=== PATIENT | male | born 1960 | race Caucasian/White ===

== ENCOUNTER → 2020-10-16 | Day surgery (SDC) | payer BC ==
[~2020-10-16] MED LIST: Lactated Ringers 1,000 ML IV SCH; Lidocaine 1% 4 ML ONE; Lidocaine 1%/Sod Bicarbonate in NS 8.4% 1 ML Syringe IDERM PRN; Metoprolol Succinate 25 MG Tab.ER PO SCH; Propofol 200 MG/20 ML SDV ONE; Sodium Chloride 0.9% 10 ML Syringe FLUSH PRN; fentaNYL 100 MCG/2 ML SDV ONE
--- NOTE | 2020-10-16 09:16 | PCM.PREANE ---
Preanesthetic Assessment - Procedure Proposed Procedure: Colonoscopy - Anesthesia/Transfusion/Family Hx Anesthesia History: Prior Anesthesia Without Reaction Family History of Anesthesia Reaction: No - Review of Systems General: No Symptoms Pulmonary: No Symptoms Cardiovascular: No Symptoms Gastrointestinal: Other (GERD Controlled) Neurological: No Symptoms Other: Reports: Diabetes (Type II, controlled, Blood Glucose 106 mg/dl. ) - Physical Assessment NPO Status Date: 10/15/20 NPO Status Time: 23:00 Vital Signs: Last Vital Signs Temp 35.9 C L 10/16/20 07:45 Pulse 93 10/16/20 08:01 Resp 16 10/16/20 07:45 BP 141/97 H 10/16/20 08:01 Pulse Ox 99 10/16/20 07:45 Height: 1.78 m Weight: 99.2 kg ASA Class: 2 Mental Status: Alert & Oriented x3 Airway Class: Mallampati = 2 Dentition: Reports: Normal Dentition (Chips noted to front teeth. ) Thyro-Mental Finger Breadths: 3 Mouth Opening Finger Breadths: 3 ROM/Head Extension: Full Lungs: Clear to Auscultation, Normal Respiratory Effort Cardiovascular: Regular Rate, Regular Rhythm - Lab Values: Laboratory Last Values POC Glucose 106 mg/dL (80-115) 10/16/20 07:42 - Allergies Allergies/Adverse Reactions: Allergies Allergy/AdvReac Type Severity Reaction Status Date / Time No Known Allergies Allergy Verified 10/15/20 09:40 - Anesthesia Plan Pre-Op Medication Ordered: Beta Justin Beta Justin: Metoprolol Med Last Dose Date: 10/16/20 Med Last Dose Time: 08:05 - Acknowledgements Anesthesia Type Planned: MAC Pt an Appropriate Candidate for the Planned Anesthesia: Yes Alternatives and Risks of Anesthesia Discussed w Pt/Guardian: Yes Pt/Guardian Understands and Agrees with Anesthesia Plan: Yes PreAnesthesia Questionnaire HEENT History: Reports: Other (See Below) Other HEENT History: wears glasses, contacts Cardiovascular History: Reports: Hypertension, Other (See Below) Other Cardiovascular History: tachycardia Respiratory History: Reports: None Gastrointestinal History: Reports: GERD Genitourinary History: Reports: None [employer] History: Reports: None Musculoskeletal History: Reports: None Neurological History: Reports: None Psychiatric History: Reports: None Endocrine/Metabolic History: Reports: Diabetes, Type II Hematologic History: Reports: None Immunologic History: Reports: None Oncologic (Cancer) History: Reports: None Dermatologic History: Reports: None - Infectious Disease History Infectious Disease History: Reports: None - Past Surgical History Head Surgeries/Procedures: Reports: None HEENT Surgical History: Reports: Oral Surgery Cardiovascular Surgical History: Reports: None Respiratory Surgical History: Reports: None GI Surgical History: Reports: None Female Surgical History: Reports: None Male Surgical History: Reports: None Endocrine Surgical History: Reports: None Neurological Surgical History: Reports: None Musculoskeletal Surgical History: Reports: None Oncologic Surgical History: Reports: None Dermatological Surgical History: Reports: None - SUBSTANCE USE Tobacco Use Status *Q: Never Tobacco User Recreational Drug Use History: No - HOME MEDS Home Medications: Home Meds Ipratropium [place] 1 dose NASBOTH DAILY 10/15/20 [History] Metoprolol Succinate 25 mg PO DAILY 10/15/20 [History] Omeprazole Magnesium [Prilosec Otc] 20 mg PO DAILY 10/15/20 [History] SitaGLIPtin [Januvia] 100 mg PO DAILY 10/15/20 [History] metFORMIN HCl [Metformin HCl ER] 750 mg PO BID 10/15/20 [History] - CURRENT (IN HOUSE) MEDS Current Meds: Current Medications Lactated Ringer's (Ringers, Lactated) 1,000 mls @ 125 mls/hr IV ASDIRECTED LINETTE Stop: 10/16/20 23:00 Last Admin: 10/16/20 07:45 Dose: 125 mls/hr Documented by: Lidocaine/Sodium Bicarbonate (Buffered Lidocaine 1% In Ns 8.4%) 0.25 ml IDERM ONETIME PRN PRN Reason: Prior to IV Start Stop: 10/16/20 18:00 Last Admin: 10/16/20 07:45 Dose: 0.25 ml Documented by: Sodium Chloride (Saline Flush) 10 ml FLUSH ASDIRECTED PRN PRN Reason: Keep Vein Open Stop: 10/16/20 18:00 Discontinued Medications Fentanyl (Sublimaze) Confirm Administered Dose 100 mcg .ROUTE .STK-MED ONE Stop: 10/16/20 08:38 Lidocaine HCl (Xylocaine-Mpf 1%) Confirm Administered Dose 4 mls @ as directed .ROUTE .STK-MED ONE Stop: 10/16/20 09:06 Metoprolol Succinate (Toprol Xl) 25 mg PO ONETIME LINETTE Stop: 10/16/20 09:00 Last Admin: 10/16/20 08:01 Dose: 25 mg Documented by: Propofol (Diprivan 20 Ml) Confirm Administered Dose 400 mg .ROUTE .STK-MED ONE Stop: 10/16/20 08:38
--- NOTE | 2020-10-16 09:48 | PCM48HPAN ---
Post Anesthesia Note - EVALUATION WITHIN 48HRS OF ANESTHETIC Vital Signs in Normal Range: Yes Patient Participated in Evaluation: Yes Respiratory Function Stable: Yes Airway Patent: Yes Cardiovascular Function Stable: Yes Hydration Status Stable: Yes Pain Control Satisfactory: Yes Nausea and Vomiting Control Satisfactory: Yes Mental Status Recovered: Yes Vital Signs: Last Vital Signs Temp 35.9 C L 10/16/20 07:45 Pulse 93 10/16/20 08:01 Resp 16 10/16/20 07:45 BP 141/97 H 10/16/20 08:01 Pulse Ox 99 10/16/20 07:45
--- NOTE | 2020-10-16 09:50 | PCM.PRNOTE ---
- Free Text/Narrative Note: Date: 10/16/2020 Procedure: screening colonoscopy Endoscopist: Yaya Romero MD Findings: very good prep. There were polypoid lesions in the terminal ileum and at the ileocecal junction. 4 colonic polyps were identified and removed. Minor diverticulosis and internal hemorrhoids. Detailed Report: The patient was taken to the endoscopy suite and placed in left lateral decubitus position. Time out was performed and monitored anesthesia care initiated. The anus was patulous. Digital exam was unremarkable and prostate felt normal. The colonoscope was inserted and advanced to the cecum. The appendiceal orifice was visualized. The terminal ileum was intubated. There were polypoid lesions within the terminal ileum. The mucosa at the ileocecal junction was prominent and had a polypoid surface appearance. Although I do not think there was any true abnormality at the site, a sample biopsy was obtained with cold forceps. The scope was slowly withdrawn back through the colon and mucosal surfaces carefully inspected. Within the ascending colon were two polyps within a few centimeters of each other. One was small and removed entirely with cold forceps. The other was about 1 cm in size and removed with hot snare polypectomy technique. Two additional polyps were noted in the transverse colon, < 1cm. One was pedunculated and removed with hot snare. The other was small and sessile and removed piecemeal with cold forceps. A few small scattered diverticula were seen throughout the colon. Internal hemorrhoids were noted on retroflexion within the rectum. Air was suctioned prior to withdrawal of the scope. The patient tolerated the procedure well.
== END | disposition home or self-care (01) ==
LOC: JD.SDS 07:23
PROVIDERS: ATTEND Surgery
DX: Z12.11 Encounter for screening for malignant neoplasm of colon (principal); D12.2 Benign neoplasm of ascending colon; K57.30 Diverticulosis of large intestine without perforation or abscess without bleeding; K64.8 Other hemorrhoids; E11.9 Type 2 diabetes mellitus without complications; I10 Essential (primary) hypertension; Z79.84 Long term (current) use of oral hypoglycemic drugs
CPT/HCPCS: 45380; 45385; 82962; A9270; J2704; J3010; J7120; 00812

== ENCOUNTER 2022-11-22 20:16 | Emergency (ER) | payer BC ==
[2022-11-22] MEDS ORDERED: Sodium Chloride 0.9% 10 ML Syringe FLUSH PRN (20:36)
[2022-11-22] MEDS ORDERED: Sodium Chloride 0.9% 1,000 ML IV STA (20:41)
== END 2022-11-22 22:55 | disposition home or self-care (01) ==
LOC: JD.ED 20:16
DX: R55 Syncope and collapse (principal); I10 Essential (primary) hypertension; E11.9 Type 2 diabetes mellitus without complications; K21.9 Gastro-esophageal reflux disease without esophagitis; Z79.84 Long term (current) use of oral hypoglycemic drugs; Z79.899 Other long term (current) drug therapy
CPT/HCPCS: 36415; 71045; 80053; 84484; 85025; 93005; 96360; 99284; J7030; 93010

== ENCOUNTER 2024-11-27 07:38 | Emergency (ER) | payer MEDICARE, BC ==
[2024-11-27] MEDS ORDERED: Sodium Chloride 0.9% 10 ML Syringe FLUSH PRN (08:02)
[2024-11-27] MEDS: Sodium Chloride 0.9% 500 ML IV ONE (08:33)
[2024-11-27 08:48] LABS: BASOPHILS ABSOLUTE AUTO 0.1 K/mm3 (0.0-0.2); BASOPHILS PERCENT AUTO 0.6 % (0.0-1.0); EOSINOPHILS ABSOLUTE AUTO 0.1 K/mm3 (0.0-0.4); EOSINOPHILS PERCENT AUTO 0.5 % (0.0-6.0); HEMATOCRIT 41.8 % (42.0-52.0); IMMATURE GRAN ABSOLUTE AUTO 0.06 K/mm3 (0.00-0.05); IMMATURE GRAN PERCENT AUTO 0.6 % (0.0-0.4); LYMPHOCYTES ABSOLUTE AUTO 1.4 K/mm3 (1.0-4.8); LYMPHOCYTES PERCENT AUTO 12.4 % (24.0-44.0); MEAN CORPUSCULAR HEMOGLOBIN 32.4 pg (28.0-32.0); MEAN CORPUSCULAR HGB CONC 33.5 g/dl (32.0-36.0); MEAN CORPUSCULAR VOLUME 96.8 fl (83.0-99.0); MEAN PLATELET VOLUME 9.6 fl (9.4-12.4); MONOCYTES ABSOLUTE AUTO 0.6 K/mm3 (0.0-0.8); MONOCYTES PERCENT AUTO 5.5 % (0.0-8.0); NEUTROPHILS ABSOLUTE AUTO 8.8 K/mm3 (1.8-7.7); NEUTROPHILS PERCENT AUTO 80.4 % (41.0-71.0); PLATELET COUNT,PLT 188 K/mm3 (150-400); RED BLOOD CELL COUNT 4.32 M/mm3 (4.52-5.90); WHITE BLOOD CELL COUNT,WBC 10.88 K/mm3 (3.9-11.3)
[2024-11-27 09:15] LABS: A/G RATIO 1.3 (1-2); ALANINE AMINOTRANSFERASE,ALT 28 U/L (16-63); ALBUMIN 3.6 g/dl (3.4-5.0); ALKALINE PHOSPHATASE 49 U/L (46-116); ANION GAP 13.3 (5-15); ASPARTATE AMNIOTRANSFERASE,AST 16 U/L (15-37); BILIRUBIN TOTAL 0.5 mg/dL (0.2-1.0); BLOOD UREA NITROGEN,BUN 22 mg/dL (7-18); CALCIUM 8.8 mg/dL (8.5-10.1); CARBON DIOXIDE,CO2 26 mEq/L (21-32); CHLORIDE,CL 104 mEq/L (98-107); EST CRCL DRUG DOSING (CG) 76.04 mL/min; ESTIMATED GFR 84 mL/min (>60); GLUCOSE RANDOM 140 mg/dL (70-99); MAGNESIUM 1.7 mg/dL (1.8-2.4); POTASSIUM,K 4.3 mEq/L (3.5-5.1); PROTEIN TOTAL,TP 6.4 g/dl (6.4-8.2); SODIUM,NA 139 mEq/L (136-145)
[2024-11-27 09:16] LABS: TROPONIN I HIGH SENSITIVITY < 4 pg/mL (<=76)
[2024-11-27 10:21] LABS: APPEARANCE,URINE CLEAR (Clear); BILIRUBIN,URINE NEGATIVE (Negative); COLOR,URINE YELLOW (Yellow); GLUCOSE,URINE NEGATIVE (Negative); KETONES,URINE NEGATIVE (Negative); LEUKOCYTE ESTERASE,URINE NEGATIVE (Negative); NITRITE,URINE NEGATIVE (Negative); OCCULT BLOOD,URINE NEGATIVE (Negative); PROTEIN,URINE NEGATIVE (Negative)
== END 2024-11-27 11:25 | disposition home or self-care (01) ==
LOC: JD.ED 07:38
DX: R55 Syncope and collapse (principal); I10 Essential (primary) hypertension; E11.9 Type 2 diabetes mellitus without complications; K21.9 Gastro-esophageal reflux disease without esophagitis; Z79.899 Other long term (current) drug therapy; Z79.02 Long term (current) use of antithrombotics/antiplatelets; Z79.84 Long term (current) use of oral hypoglycemic drugs
CPT/HCPCS: 36415; 71045; 80053; 81003; 82947; 83735; 84484; 85025; 93005; 96360; 99285; J7030; 93010; 99283